=== PATIENT | male | born 1935 | race Caucasian/White ===

== ENCOUNTER → 2017-02-06 | Outpatient (CLI) | payer BC ==
[~2017-02-06] MED LIST: DXY100 PO; ESCI1TAB6; GLCS500; OMEG10007 PO; THIA100T11 PO
[2017-02-06 17:54] LABS: ALT/SGPT 31 U/L (12-78); BLOOD UREA NITROGEN 19 mg/dl (7-18); BUN/CREATININE RATIO 13.4 (10-20); CALCIUM 9.3 mg/dl (8.5-10.1); CARBON DIOXIDE 26 mmol/L (21-32); CHLORIDE 104 mmol/L (98-107); CREATININE 1.44 mg/dl (0.60-1.40); GLUCOSE 98 mg/dl (70-99); POTASSIUM 4.1 mmol/L (3.5-5.1); SODIUM 138 mmol/L (136-145)
[2017-02-06 18:03] LABS: ALB/GLOB RATIO 1.2 (0.9-2); ALKALINE PHOSPHATASE 43 U/L (45-117); AST/SGOT 38 U/L (15-37); TOTAL IRON BINDING CAPACITY 254 mcg/dl (250-450)
--- NOTE | 2017-02-06 18:34 | DIAGNOSTIC IMAGING REPORT ---
PA CHEST WITH ABDOMINAL SERIES CLINICAL HISTORY: Generalized abdominal pain. FINDINGS: A PA chest radiograph is obtained. No prior studies are available for comparison at the time of dictation. The cardiomediastinal silhouette is unremarkable. There is mild elevation of the right hemidiaphragm. The lungs and pleural spaces are clear. No pneumothorax is seen. The skeletal structures are osteopenic. The bony thorax is grossly intact. Degenerative change is noted in the thoracic spine. Supine and erect abdominal radiographs are obtained. No prior studies are available for comparison at the time of dictation. There is a nonobstructed abdominal bowel gas pattern. Mild colonic fecal retention is observed. No evidence of intraperitoneal free air is seen. There are no abnormal abdominal calcifications. A phlebolith is seen in the left hemipelvis. The lumbosacral spine and bony pelvis appear intact. There is lumbosacral spondylosis and scoliosis. Sclerotic change is noted at the pubic symphysis. IMPRESSION: 1. No active disease in the chest. 2. Nonobstructed abdominal bowel gas pattern. Electronically signed by: Wilfred Vargas M.D. 02/06/2017 6:33 PM Dictated Date/Time: 02/06/2017 6:31 PM
[2017-02-06 18:50] LABS: BASO % 0.5 %; BASO ABS # 0.01 K/uL (0-0.2); COMPLETE YES; EOS % 0.5 %; HEMATOCRIT 41.5 % (42-52); IG% 0.5 %; LYMPH % 22.6 %; LYMPH ABS # 0.47 K/uL (1.2-3.4); MEAN CELL VOLUME 94.7 fL (80-100); MEAN CORPUSCULAR HEMOGLOBIN 32.2 pg (25-34); MEAN PLATELET VOLUME 9.3 fL (7.4-10.4); MONO % 20.2 %; NEUT % 55.7 %; PLATELET COUNT 72 K/uL (130-400); PLT ESTIMATE DECREASED; RED BLOOD COUNT 4.38 M/uL (4.7-6.1); WHITE BLOOD COUNT 2.08 K/uL (4.8-10.8)
== END | disposition home or self-care (01) ==
LOC: C.LAB 16:59
PROVIDERS: ATTEND Family Medicine
DX: R10.84 Generalized abdominal pain (principal); I48.91 Unspecified atrial fibrillation